=== PATIENT | female | born 1945 | race Native Hawaiian/Other Pacific Islander ===

== ENCOUNTER 2018-01-20 01:24 | Outpatient (CLI) | payer MEDICARE, MEDICAID | END 2018-01-20 23:59 | disposition home or self-care (01) | LOC: DIABETIC 01:24 | PROVIDERS: ATTEND Specialist | DX: E11.9 Type 2 diabetes mellitus without complications (principal); Z79.899 Other long term (current) drug therapy | CPT/HCPCS: G0108 ==